=== PATIENT | male | born 1965 | race Hispanic/Latino ===

== ENCOUNTER 2018-11-17 03:35 | Inpatient (IN) | payer MEDICAID ==
[2018-11-17] VITALS (8 sets, daily range): BP systolic 113–149; BP diastolic 68–92
[~2018-11-17] VITALS: Ht 167.6 cm; Wt 77.1 kg
--- NOTE | 2018-11-17 03:26 | NUR ---
ED Nurse Note: Pt JEIMYA RA 61 from home, family called 911 due to pts erratic behavior. Pt has no hx of psych but is talking about " someone has a camerain my shower and under my bed" pt denies any ETOH or drugs. Pt has had a recent change in seizure medication. VSS, A&Ox3
--- NOTE | 2018-11-17 03:35 | NUR ---
[employer] is here
[2018-11-17] MEDS ORDERED: LORazepam Inj 2mg/ml 1ml IV ONE (04:45)
--- NOTE | 2018-11-17 05:00 | NUR ---
HAND-OFF: Report given to ANDREEA Elliott.
[2018-11-17 05:28] LABS: ALANINE AMINOTRANSFERASE 34 U/L (12-78); ALBUMIN 4.2 G/DL (3.4-5.0); ALKALINE PHOSPHATASE 184 U/L (46-116); ANION GAP 14 mmol/L (5-15); ASPARTATE AMINO TRANSFERASE 38 U/L (15-37); BILIRUBIN,TOTAL 0.4 MG/DL (0.2-1.0); BLOOD UREA NITROGEN 10 mg/dL (7-18); CALCIUM 9.2 MG/DL (8.5-10.1); CARBON DIOXIDE 23 MMOL/L (21-32); CHLORIDE 102 MMOL/L (98-107); CREATININE 0.9 MG/DL (0.55-1.30); POTASSIUM 4.2 MMOL/L (3.5-5.1); SODIUM 139 MMOL/L (136-145)
[2018-11-17 05:30] LABS: BASOPHILS % (AUTO) 1.8 % (0.0-2.0); EOSINOPHILS % (AUTO) 3.3 % (0.0-3.0); HEMATOCRIT 48.8 % (42.0-52.0); LYMPHOCYTES % (AUTO) 40.4 % (20.0-45.0); MEAN CORPUSCULAR VOLUME 89 FL (80-99); MONOCYTES % (AUTO) 11.2 % (1.0-10.0); NEUTROPHILS % (AUTO) 43.3 % (45.0-75.0); PLATELET COUNT 319 K/UL (150-450); RED CELL DISTRIBUTION WIDTH 10.7 % (11.6-14.8)
--- NOTE | 2018-11-17 05:31 | NUR ---
ED Nurse Note: Endorsement received from ANDREEA Muse. pt is in bed resting. IV line has been established and bed placed at lowest position x 2 siderails.
--- NOTE | 2018-11-17 05:32 | NUR ---
ED Nurse Note: pt placed in gown and attached to medical officer psychiatry. pt IV site flushed, patent, and running. Pt appears drowsy at this time. pt was provided additional blankets for comfort measures
--- NOTE | 2018-11-17 05:47 | Emergency Room Report ---
History of Present Illness General Chief Complaint: Behavioral Complaint Source: Patient Present Illness HPI 52-year-old male presents ED for evaluation. Brought in by EMS. States that patient was behaving erratically at home and family called 911 tonight. Patient states that his family someone smoked marijuana and he smelled it which made him feel very strange. EMS states patient has a history of seizures and takes phenobarbital and Dilantin. Told EMS that his medication dosages have been changed recently. Denies SI or HI. Denies hearing voices. Patient himself denies alcohol or drug use. Denies any recent seizure activity. No other aggravating relieving factors. Denies any other associated symptoms Allergies: Coded Allergies: No Known Allergies (Unverified , 11/17/18) Patient History Past Medical History: HTN, seizures Past Surgical History: none Pertinent Family History: none Social History: Reports: drug use; Denies: smoking, alcohol use Immunizations: UTD Reviewed Nursing Documentation: PMH: Agreed; PSxH: Agreed Nursing Documentation-PMH Past Medical History: No History, Except For Hx Hypertension: Yes Hx Seizures: Yes Review of Systems All Other Systems: negative except mentioned in HPI Physical Exam Vital Signs Date Time Temp Pulse Resp B/P (MAP) Pulse Ox O2 Delivery O2 Flow Rate FiO2 11/17/18 03:11 98.4 11/17/18 03:11 84 18 149/92 (111) 100 Room Air Sp02 EP Interpretation: reviewed, normal General Appearance: no apparent distress, GCS 15, non-toxic, other - lethargic Head: normocephalic Eyes: bilateral eye normal inspection, bilateral eye PERRL ENT: normal ENT inspection Neck: normal inspection Respiratory: chest non-tender, lungs clear, normal breath sounds, speaking full sentences Cardiovascular #1: regular rate, rhythm, no edema Gastrointestinal: normal bowel sounds, non tender, soft, non-distended, no guarding, no rebound Rectal: deferred Genitourinary: no CVA tenderness Musculoskeletal: normal inspection Neurologic: alert, responsive, motor strength/tone normal, sensory intact, speech normal, other - disoriented Psychiatric: anxious Skin: no rash Lymphatic: normal inspection Procedures Critical Care Time Critical Care Time i. I feel this is a highly complex case requiring extensive working including EKG/Rhythm strip, Xray/CT/US, Blood/urine lab work, repeat exams while in ED, and administration of strong opiates/narcotics for pain control, admission to hospital or close patient follow up. Total time: 30 min bedside evaluation and treatment excludes procedures (EKG). Reason for critical care: dilantin toxicity Possible complications: hypotension, hypertension, IA, shock, arrhythmias, metabolic acidosis, end organ damage, respiratory failure. Interventions: labs, ivfs, ekg, cardiac monitoring, ativan Course: Presenting with disorientation and confusion from home. Appeared more calm upon arrival however had acute episode of delirium in ED. Labs drawn. Given Ativan. EKG normal. Dilantin level markedly elevated. Consultations: nursing staff, EMS, family Performed by: Dr Gomez Tolerated well condition = serious j. because of unstable vital signs this patient had a condition that could potentially threaten life or limb. I feel this is a critical patient who required my full attention while patient was considered critical. Total Critical Care Time excluding procedures was greater than 30 minutes Medical Decision Making Diagnostic Impression: Primary Impression: Altered level of consciousness Additional Impression: Dilantin toxicity ER Course Hospital Course 52-year-old M presents to ED with altered mental status. Differential diagnoses include: Psychosis, EtOH, drug abuse Clinical course patient placed on stretcher. On library monitor. After initial history and physical I allowed patient to rest and ED During ED course patient walked in the hallway acting confused and altered. We brought him to monitored bed and started work-up I ordered labs, IV fluids, EKG, ativan Labs reviewed-electrolytes okay, no leukocytosis, hemoglobin/hematocrit stable, Dilantin level markedly elevated EKG - NSR, no acute ischemic changes inteprreted by me Patient protecting airway. Vitals stable. Because of insurance patient will be transferred i. I feel this is a highly complex case requiring extensive working including EKG/Rhythm strip, Xray/CT/US, Blood/urine lab work, repeat exams while in ED, and administration of strong opiates/narcotics for pain control, admission to hospital or close patient follow up. Diagnosis - dilantin toxicity, altered level of consciousness transferred in serious condition Labs Test 11/17/18 04:43 11/17/18 04:58 White Blood Count 8.0 K/UL (4.8-10.8) Red Blood Count 5.50 M/UL (4.70-6.10) Hemoglobin 17.0 G/DL (14.2-18.0) Hematocrit 48.8 % (42.0-52.0) Mean Corpuscular Volume 89 FL (80-99) Mean Corpuscular Hemoglobin 30.9 PG (27.0-31.0) Mean Corpuscular Hemoglobin Concent 34.9 G/DL (32.0-36.0) Red Cell Distribution Width 10.7 % (11.6-14.8) Platelet Count 319 K/UL (150-450) Mean Platelet Volume 6.1 FL (6.5-10.1) Neutrophils (%) (Auto) 43.3 % (45.0-75.0) Lymphocytes (%) (Auto) 40.4 % (20.0-45.0) Monocytes (%) (Auto) 11.2 % (1.0-10.0) Eosinophils (%) (Auto) 3.3 % (0.0-3.0) Basophils (%) (Auto) 1.8 % (0.0-2.0) Sodium Level 139 MMOL/L (136-145) Potassium Level 4.2 MMOL/L (3.5-5.1) Chloride Level 102 MMOL/L (98-107) Carbon Dioxide Level 23 MMOL/L (21-32) Anion Gap 14 mmol/L (5-15) Blood Urea Nitrogen 10 mg/dL (7-18) Creatinine 0.9 MG/DL (0.55-1.30) Estimat Glomerular Filtration Rate > 60 mL/min (>60) Glucose Level 108 MG/DL (74-106) Calcium Level 9.2 MG/DL (8.5-10.1) Total Bilirubin 0.4 MG/DL (0.2-1.0) Aspartate Amino Transf (AST/SGOT) 38 U/L (15-37) Alanine Aminotransferase (ALT/SGPT) 34 U/L (12-78) Alkaline Phosphatase 184 U/L (46-116) Troponin I 0.000 ng/mL (0.000-0.056) Total Protein 8.2 G/DL (6.4-8.2) Albumin 4.2 G/DL (3.4-5.0) Globulin 4.0 g/dL Albumin/Globulin Ratio 1.0 (1.0-2.7) Salicylates Level 1.1 ug/mL (2.8-20) Acetaminophen Level < 2 MCG/ML (10-30) Phenytoin (Dilantin) Level 51.7 ug/mL (10-20) Serum Alcohol < 3 mg/dL Urine Opiates Screen Negative (NEGATIVE) Urine Barbiturates Screen Positive (NEGATIVE) Phencyclidine (PCP) Screen Negative (NEGATIVE) Urine Amphetamines Screen Negative (NEGATIVE) Urine Benzodiazepines Screen Negative (NEGATIVE) Urine Cocaine Screen Negative (NEGATIVE) Urine Marijuana (THC) Screen Negative (NEGATIVE) EKG Diagnostic Results Rate: normal Rhythm: NSR ST Segments: no acute changes ASA given to the pt in ED: No Rhythm Strip Diag. Results EP Interpretation: yes Rhythm: NSR, no PVC's, no ectopy Last Vital Signs Date Time Temp Pulse Resp B/P (MAP) Pulse Ox O2 Delivery O2 Flow Rate FiO2 11/17/18 05:34 98.2 69 15 130/86 94 Room Air Status: improved Disposition: XFER SHT-TRM HOSP Condition: Serious Referrals: [facility],REFERRING (PCP) Thad Gomez MD Nov 17, 2018 05:47
--- NOTE | 2018-11-17 06:15 | NUR ---
ED Nurse Note: pt is currently sleeping bed, no acute signs of distress noted. will continue to monitor pt. ermd aware of dilatin level.
--- NOTE | 2018-11-17 06:34 | NUR ---
ED Nurse Note: Pt was assisted to use urinal bottle.
--- NOTE | 2018-11-17 07:10 | NUR ---
HAND-OFF: Report given to ANDREEA Beckman.
--- NOTE | 2018-11-17 07:23 | NUR ---
ED Nurse Note: Received pt from ANDREEA Elliott. Pt is sleeping in bed comfortably. Lung sounds clear, even, non-labored. Vital signs stable. Will cont to monitor.
--- NOTE | 2018-11-17 08:51 | NUR ---
ED Nurse Note: RN was instructed to call report around 0915, BS at this time 89, pt is in no distress.
--- NOTE | 2018-11-17 09:34 | NUR ---
ED Nurse Note: Report given to ANDREEA Deleon at ext [phone]. Pt to be transfered to room 217-[facility] per protocol.
--- NOTE | 2018-11-17 09:35 | NUR ---
NURSE NOTES: Received report from Karuna, AUTO BODY REPAIR TECHNICIAN. Per Karuna, patient's caregiver will bring in patient's mother for medication reconciliation. Caregiver was only able to provide information to Karuna regarding patient's Dilantin medication. Karuna states she will reconcile that medication to patient's chart. Awaiting patient at this time.
[2018-11-17] MEDS ORDERED: DILANTIN100 MG ORAL ×2 (09:37→09:55)
[2018-11-17] MEDS ORDERED: PHENOBARBITAL64.8 MG PO (09:55)
--- NOTE | 2018-11-17 10:00 | NUR ---
Pt received from ANDREEA Beckman in stable condition with no cardiopulmonary distress noted. Pt is AAOx4, SR hooked to bus monitor, on RA, VS noted and recorded. Pt has a LH 20g IV saline locked. No skin alterations noted at this time. Bed in lowest position, alarm on, side rails up x3 and padded per seizure precaution, call light within reach. Will continue to monitor.
--- NOTE | 2018-11-17 10:15 | NUR ---
NURSE NOTES: Called Dr Wheeler for orders and he asked me to contact family to complete med recon and place orders. Contacted Khushbu Sarah and Raúl Stephens (pt's emergency contacts on face sheet) and no response or option to leave voicemail. Addendum: 11/17/18 at 1102 by Adrienne Graves RN Amendment: called Khushbu Sarah
--- NOTE | 2018-11-17 11:02 | NUR ---
Attempted to call Khushbu Sarah 3x still no response. Will contact Dr. Wheeler again now
--- NOTE | 2018-11-17 11:06 | NUR ---
NURSE NOTES: Left message for Dr. Wheeler to inform him I wasn't able to get ahold of caregiver or facesheet contact. Also informed him that pt states he takes Dilantin and phenobarbital for epilepsy however he doesn't recall doses, pt also denies anti-hypertensive medications. Awaiting call back from Dr. Wheeler
[2018-11-17] MEDS ORDERED: APTIOM600 MG PO (12:47)
--- NOTE | 2018-11-17 17:00 | NUR ---
NURSE NOTES: Social service order placed for the following concerns: Pt presents very confused with high levels of Dilantin, he states he lives alone and manages his own medications; however, he is unable to recall accurate dosage and frequency information during medication reconciliation. A woman named "Khushbu Sarah" came to visit the patient and states she is his caregiver- however she is unable to provide any information on the patient's list of medications except for "Aptiom 600mg PO BID;" she states this was added to the patient's current meds and since he has started it "he's been acting funny." She also mentioned the patient suffers from "paranoia" and "psych issues." She states the patient manages his own medications and that she is not involved in his medication administration. She states that she and the patient dated in the past but are no longer dating currently. Khushbu states the patient's mother lives in [facility] [place], [place] and is not involved in his care, her contact info is: Cindy [phone] Persian speaking only. The patient's neurologist who prescribed the Aptiom and scheduled an EEG procedure for no later than 12/09/09 is Charan Albert MD located at [address] [place] [id number]. The patient's PCP is Luis Manuel Ge MD [phone] located at [address] [place] [address], [id number]. This info was provided on the EEG authorization form left in the pt's chart by Khushbu. I filed this report concerning the patient being unable to manage his own medications independently.
--- NOTE | 2018-11-17 17:20 | NUR ---
NURSE NOTES: Spoke with Dr. Wheeler regarding patient's medications and that patient is unable to confirm dosages. I also informed him that patient states he is worried he might have a seizure in the morning and that he "feels is before it comes." Dr. Wheeler is aware and declined to place anti-seizure medications or PRN lorazepam because pt's "dilantin levels are too high." No orders placed.
--- NOTE | 2018-11-17 18:00 | History and Physical Report ---
DATE OF ADMISSION: 11/17/2018 HISTORY OF PRESENT ILLNESS: This is a 52-year-old male, who was brought to the hospital for evaluation. Apparently, the patient has been having a change in mental status at home and family requested paramedics to bring him here. On discussion with ER physician, the patient was actually ambulating in the hallway yesterday, although he was unsteady on his feet this morning. He is awake, but very lethargic. Apparently, there was concern that he may be smoking marijuana at home as well. The patient has history of seizures and takes phenobarbital and Dilantin. He lives at home with caregiver. He has a long psychiatric history as well. PAST MEDICAL HISTORY: Hypertension, seizure, and psych disorder. PAST SURGICAL HISTORY: None. HOME MEDICATIONS: Phenobarbital and Dilantin, dose is unknown. REVIEW OF SYSTEMS: Not obtainable. PHYSICAL EXAMINATION: GENERAL: Reveals a 52-year-old male. HEENT: Unremarkable. LUNGS: Clear breath sounds. ABDOMEN: Soft. EXTREMITIES: There is no edema. NEUROLOGIC: The patient is awake, unable to answer questions. He was noted to mumbling earlier in the day. He was seen to be ambulating with assistance, but on my assessment he is non-cooperative. LABORATORY DATA: Lab testing shows a normal CBC and BMP. Dilantin level is elevated to 51. U-tox is positive for barbiturates and negative for marijuana. IMPRESSION: Dilantin toxicity. DISCUSSION: Admit to the hospital. We will keep him on telemetry. Seizure precautions. Regular diet. We will monitor Dilantin level. We will obtain neurologic evaluation. Consider psych evaluation if needed. SCDs bilaterally. We will follow. Roque Wheeler M.D. DR: CONRADO JOB#: [id number] CC:
--- NOTE | 2018-11-17 18:00 | NUR ---
NURSE NOTES: Pt took off SCDs and is refusing them. I educated him on their indication for preventing blood clot however he still refused. SCDs are at bedside.
--- NOTE | 2018-11-17 18:31 | Cardiology Report ---
APPROVED REPORT EKG Measurement Heart [id number] ME [id number] Normal sinus rhythm Normal ECG
--- NOTE | 2018-11-17 19:28 | NUR ---
HAND-OFF: Report given to ANDREEA Can. Pt noted to performing sqauts and exercising at the bedside. Me and Pamella educated the patient on fall precuation and explained to pt importance of rest period. Pt verbalized understanding and got back in bed. Pt in stable condition.
--- NOTE | 2018-11-17 19:46 | NUR ---
NURSE NOTES: Received pt and report from ANDREEA Deleon. Observed pt resting in bed with both eyes open and watching television. Pt is A/Ox3. court recording monitor is in placed, IV site intact, asymptomatic and patent. Bed is in the lowest position and locked. Call light within reach. No signs/symptoms of acute distress noted at this time. Will continue plan of care.
[2018-11-18] VITALS: BP 117/79
[2018-11-18 04:00] VITALS: BP 126/78
--- NOTE | 2018-11-18 07:30 | NUR ---
NURSE NOTES: Received Phenytoin levels from refuse laborer. Phenytoin level (38.7) trending down.
[2018-11-18 08:00] VITALS: BP 135/82
--- NOTE | 2018-11-18 08:08 | NUR ---
HAND-OFF: Report given to ANDREEA Rebollar.
--- NOTE | 2018-11-18 08:09 | NUR ---
NURSE NOTES: Received patient and report from Pamella RN. in bed resting. A/O x 3. Denies any pain at this time. No sign of acute distress noted. IV is intact and patent fluids running. Bed is in lowest position. Brakes engaged for safety. Call light is within reach. Will continue with the plan of care.
--- NOTE | 2018-11-18 10:30 | NUR ---
*-* NO INSURANCE INFORMATION IN THE BAR UNABLE TO SEND CLINICALS OR REVIEWS *-*
[2018-11-18 12:00] VITALS: BP 141/86
--- NOTE | 2018-11-18 13:19 | Pulmonology Progress Note ---
Assessment/Plan Assessment/Plan IMPRESSION: Dilantin toxicity. DISCUSSION: Seizure precautions. Regular diet. Will resume Depakote Hold off on Dilantin Roque Wheeler M.D. Subjective Interval Events: None new; more awake Constitutional: Reports: no symptoms HEENT: Repors: no symptoms Respiratory: Reports: no symptoms Cardiovascular: Reports: no symptoms Gastrointestinal/Abdominal: Reports: no symptoms Genitourinary: Reports: no symptoms Allergies: Coded Allergies: Food Starch (Verified Allergy, Severe, 11/18/18) Spagetti Pasta (Verified Allergy, Severe, 11/18/18) Objective Last 24 Hour Vital Signs Date Time Temp Pulse Resp B/P (MAP) Pulse Ox O2 Delivery O2 Flow Rate FiO2 11/18/18 12:00 98.0 71 20 141/86 (104) 97 11/18/18 09:00 Room Air 11/18/18 08:00 74 11/18/18 08:00 98.2 68 20 135/82 (99) 95 11/18/18 04:00 69 11/18/18 04:00 97.9 71 19 126/78 (94) 97 11/18/18 00:00 74 11/18/18 00:00 98.1 68 20 117/79 (92) 96 11/17/18 21:00 Room Air 11/17/18 20:00 80 11/17/18 20:00 97.3 77 18 123/79 (94) 95 11/17/18 16:00 77 11/17/18 16:00 98.7 79 18 125/81 (96) 96 Intake and Output 11/17/18 11/18/18 19:00 07:00 Intake Total 687.5 ml 150 ml Balance 687.5 ml 150 ml Intake Oral 200 ml 150 ml IV Total 487.5 ml # Voids 1 2 General Appearance: no acute distress HEENT: normocephalic Respiratory/Chest: chest wall non-tender, lungs clear Cardiovascular: normal peripheral pulses Abdomen: normal bowel sounds Laboratory Tests 11/18/18 06:07: Phenytoin (Dilantin) Level 38.7*H Current Medications Medications (Trade) Dose Ordered Sig/Ke Route PRN Reason Start Time Stop Time Status Last Admin Dose Admin Clonidine HCl (Catapres Tab) 0.1 mg Q6H PRN ORAL SBP>160 11/17/18 11:45 12/17/18 11:44 Sodium Chloride 1,000 ml @ 75 mls/hr [id number] IV 11/17/18 13:00 12/17/18 12:59 11/18/18 02:21 Roque Wheeler MD Nov 18, 2018 13:19
[2018-11-18 16:00] VITALS: BP 124/80
--- NOTE | 2018-11-18 16:20 | NUR ---
CASE MANAGEMENT:REVIEW 52 YR OLD MALE BIBA FROM HOME CC: ERRATIC BEHAVIOR. FAMILY CALLED 911 PMH: SEIZURES SI: AMS. DILANTIN TOXICITY 98.4 84 18 149/92 100% ON RA DILANTIN LEVEL+51.7 IS: IV ATIVAN IV PEPCID 1L NS BOLUS : TO TELEMETRY DCP: HOME?
--- NOTE | 2018-11-18 16:35 | NUR ---
Social Service Note SW unable to speak with Khushbu Sarah regarding information provided regarding home care. Will continue to follow up.
--- NOTE | 2018-11-18 19:31 | NUR ---
HAND-OFF: Report given to ANDREEA Colin.Patient is in stable condition.
--- NOTE | 2018-11-18 19:35 | NUR ---
NURSE NOTES: Received report from Elle Segundo RN. Patient in bed AAO X4 with no complaints of acute pain or discomfort noted at this time. Kept clean, dry, and comfortable in bed. IV line intact and patent with continuous cafeteria monitor in place. Able to ambulate without assistance to the bathroom. Safety precaution in place; siderails X3 up and padded, call light within reach, bed in lowest position and free from clutter, brakes and alarm on at all times, suction equipment within reach at bedside. Needs and wants anticipated and attended. Will continue plan of care and monitor for any changes noted.
[2018-11-18 20:00] VITALS: BP 126/82
--- NOTE | 2018-11-18 21:15 | NUR ---
NURSE NOTES: Patient asked if he can use the phone in the room, RN offered and put in hospital phone at bedside. Will continue to monitor.
--- NOTE | 2018-11-18 21:50 | NUR ---
NURSE NOTES: While doing rounds observed patient unscrewed IV line and left in bed. Checked wether patient went to the bathroom, called name with no reply. Patient not in room. Notified CN
--- NOTE | 2018-11-18 22:10 | NUR ---
NURSE NOTES: Called and spoke with Gonsalo Stephens (Mother) and Jayleen Sarah (Caregiver) regarding patients status and recent occurrence of elopement.
--- NOTE | 2018-11-18 23:20 | NUR ---
NURSE NOTES: Called and filed a Police phone report for elopement with IV and domestic housekeeper still in place. Elle Wheeler MD, notified and made aware of patient's situation. Incident report per RN
--- NOTE | 2018-11-19 10:34 | Discharge Summary ---
Discharge Summary Discharge Summary _ DATE OF ADMISSION: 11/17/2018 DATE OF DISCHARGE: 11/18/2018 Patient eloped REASON FOR ADMISSION: 52 years old male with past medical history of hypertension, seizure disorder, psychiatric disorder, was brought to the hospital for evaluation due to change in mental status at home. Family requested paramedics to bring him for evaluation. Patient reported history of seizure and was taking phenobarbital and Dilantin. Medication dosage recently had been changed. Patient denied suicidal or homicidal ideation, he denied hearing voices. He denied any recent seizure activity. Patient reported that someone in his family was smoked marijuana , and the smell made him feel strange. Laboratory workup revealed no leukocytosis, stable electrolytes and renal parameters. Dilantin level was elevated to 51.7. Time Urine toxicology screen was positive for barbiturates. Patient is on phenobarbital. Serum alcohol, salicylate, and Tylenol levels were all negative. Troponin negative. EKG revealed normal sinus rhythm, no acute changes. Patient started on the IV fluids and admitted for further management. HOSPITAL COURSE: Patient admitted to telemetry floor. Seizure precautions were maintained. Depakote was resumed and Dilantin was on hold. Dilantin level trended down to 38 on the next day. No evidence of seizure activity while in the hospital. Blood pressure was closely monitored. GI prophylaxis provided. Pulse oximetry was stable. During the routine nursing rounds in the evening on 11/18 patient was not in the room, and nowhere to be found. Patient eloped. Police report was filed , and family was notified. FINAL DIAGNOSES: Dilantin toxicity I have been assigned to dictate discharge summary for this account. I was not involved in the patient's management. Viktoria Cooper NP Nov 19, 2018 10:34
== END 2018-11-18 23:15 | disposition left against medical advice (07) | DRG 52 ==
LOC: EDBD 03:35 → EMR 03:55 → 2E 07:54 → EDBEDREQ 08:41
DX: R40.4 Transient alteration of awareness (principal); T42.0X5A Adverse effect of hydantoin derivatives, initial encounter; I10 Essential (primary) hypertension; G40.909 Epilepsy, unspecified, not intractable, without status epilepticus
CPT/HCPCS: 36415; 80053; 80184; 80185; 80307; 80329; 84484; 85025; 93005; 96361; 96374; 96375; 99291